=== PATIENT | male | born 1950 | race African-American/Black ===

== ENCOUNTER 2018-12-19 16:57 | Emergency (ER) | payer MEDICARE ==
[~2018-12-19] VITALS: Ht 172.7 cm; Wt 77.3 kg
[2018-12-19 16:59] VITALS: TEMP 98.5
[2018-12-19 18:31] LABS: BASO % 0.3 % (0.0-2.0); EOS # 0.1 (0.0-0.7); GRAN % 77.7 % (42.2-75.2); HEMATOCRIT 39.5 % (42.0-52.0); HEMOGLOBIN 13.1 g/dl (13.5-18.0); LYMPH % 13.4 % (20.0-51.0); MEAN CELL VOLUME 87 fl (80.0-100.0); MEAN CORPUSCULAR HEMOGLOBIN 29 pg (27.0-31.0); MEAN CORPUSCULAR HGB CONC 33 g/dl (33.0-37.0); MEAN PLATELET VOLUME 11.4 fl (7.4-10.4); MONO # 0.6 (0.1-0.6); MONO % 7.2 % (1.7-9.3); PLATELET COUNT 165 K/mm3 (130-400); RED BLOOD COUNT 4.53 M/mm3 (4.20-5.60); REDCELL DISTRIBUTION WIDTH-CV 13.6 % (11.5-14.5)
[2018-12-19 18:47] LABS: ALANINE AMINOTRANSFERASE 41 U/L (21-72); ALBUMIN 3.7 gm/dL (3.5-5.0); ALKALINE PHOSPHATASE 121 U/L (50-136); ANION GAP 7 mmol/L (7-16); AST,SGOT 44 U/L (15-37); BILIRUBIN,TOTAL 0.8 mg/dL (0.0-1.0); BLOOD UREA NITROGEN 10 mg/dL (9-20); CALCIUM 9.1 mg/dL (8.4-10.2); CARBON DIOXIDE 28 mmol/L (22-30); CHLORIDE 104 mmol/L (98-107); CREATININE, serum 0.75 (0.66-1.25); GLUCOSE 126 mg/dL (74-106); LIPASE 140 U/L (23-300); POTASSIUM 4.3 mmol/L (3.4-5.0); SODIUM 139 mmol/L (137-145); TOTAL PROTEIN 7.6 gm/dL (6.4-8.2)
[2018-12-19 18:49] LABS: C-REACTIVE PROTEIN < 0.5 mg/dL (0.0-0.9)
[2018-12-19 18:50] LABS: COLLECTION METHOD CLEAN CATCH
[2018-12-19 18:56] LABS: MUCOUS Present /lpf; PH 7 (5-8); SQUAMOUS EPITHELIAL None Seen /hpf; URINE APPEARANCE Clear; URINE BACTERIA None Seen /hpf; URINE BILIRUBIN Negative (NEGATIVE); URINE BLOOD Negative (NEGATIVE); URINE COLOR Yellow; URINE GLUCOSE Negative (NEGATIVE); URINE KETONE Negative (NEGATIVE); URINE LEUKOCYTE ESTERASE Negative (NEGATIVE); URINE NITRATE Negative (NEGATIVE); URINE PROTEIN(semi-quant) Negative (NEGATIVE); URINE RBC 0-2 /hpf
[2018-12-19 19:49] VITALS: BP 170/108; PULSE 77
== END 2018-12-19 19:57 | disposition home or self-care (01) ==
LOC: COL.ER 16:57
PROVIDERS: Emergency Medicine
DX: K40.90 Unilateral inguinal hernia, without obstruction or gangrene, not specified as recurrent (principal)

== ENCOUNTER → 2019-09-26 | Outpatient (CLI) | payer MEDICARE | LOC: COL.RAD 07:52 | DX: B19.20 Unspecified viral hepatitis C without hepatic coma (principal) ==

== ENCOUNTER 2020-08-12 13:52 | Emergency (ER) | payer MEDICARE ==
[~2020-08-12] VITALS: Ht 175.3 cm; Wt 96.4 kg
[2020-08-12 14:20] LABS: BASO % 0.6 % (0.0-2.0); EOS # 0.3 (0.0-0.7); EOS % 5.5 % (0-4.0); GRAN # 2.5 (1.4-6.5); GRAN % 49.5 % (42.2-75.2); HEMATOCRIT 38.7 % (42.0-52.0); HEMOGLOBIN 12.9 g/dl (13.5-18.0); LYMPH # 1.7 (1.2-3.4); LYMPH % 34.9 % (20.0-51.0); MEAN CELL VOLUME 85 fl (80.0-100.0); MEAN CORPUSCULAR HEMOGLOBIN 28 pg (27.0-31.0); MEAN CORPUSCULAR HGB CONC 33 g/dl (33.0-37.0); MEAN PLATELET VOLUME 11.8 fl (7.4-10.4); MONO # 0.5 (0.1-0.6); MONO % 9.3 % (1.7-9.3); PLATELET COUNT 115 K/mm3 (130-400); RED BLOOD COUNT 4.57 M/mm3 (4.20-5.60); REDCELL DISTRIBUTION WIDTH-CV 13.2 % (11.5-14.5)
[2020-08-12 14:29] LABS: ALANINE AMINOTRANSFERASE 46 U/L (4-49); ALBUMIN 3.5 gm/dL (3.5-5.0); ALKALINE PHOSPHATASE 107 U/L (50-136); ANION GAP 2 mmol/L (7-16); AST,SGOT 57 U/L (15-37); BILIRUBIN,TOTAL 0.9 mg/dL (0.0-1.0); BLOOD UREA NITROGEN 12 mg/dL (9-20); CALCIUM 9.2 mg/dL (8.4-10.2); CARBON DIOXIDE 25 mmol/L (22-30); CHLORIDE 110 mmol/L (98-107); CREATININE, serum 0.71 (0.66-1.25); GLUCOSE 124 mg/dL (74-106); SODIUM 138 mmol/L (137-145); TOTAL PROTEIN 7.6 gm/dL (6.4-8.2)
[2020-08-12 14:43] LABS: TROPONIN-I < 0.012 ng/mL (0.000-0.035)
[2020-08-12] MEDS ORDERED: NORVASC 5MG5 MG/TAB PO (15:10)
[2020-08-12 15:12] VITALS: TEMP 97
[2020-08-12 15:16] VITALS: BP 164/97; PULSE 60
== END 2020-08-12 15:21 | disposition home or self-care (01) ==
LOC: COL.ER 13:52
PROVIDERS: Emergency Medicine
DX: R07.9 Chest pain, unspecified (principal); I10 Essential (primary) hypertension

== ENCOUNTER → 2020-08-15 | Outpatient (CLI) | payer MEDICARE ==
[~2020-08-15] MED LIST: COZAAR 50MG50 MG/TAB PO; HCTZ 25MG TAB25 MG PO; NORCO 325 MG-51 TAB PO; NORVASC 5MG5 MG/TAB PO
== END ==
LOC: COL.RAD 08:34
DX: B19.20 Unspecified viral hepatitis C without hepatic coma (principal)

== ENCOUNTER → 2020-08-30 | Outpatient (CLI) | payer MEDICARE | LOC: COL.VAS 13:27 | DX: I35.0 Nonrheumatic aortic (valve) stenosis (principal); I51.7 Cardiomegaly; R01.1 Cardiac murmur, unspecified ==

== ENCOUNTER 2020-10-30 07:43 | Day surgery (SDC) | payer MEDICARE ==
[2020-10-30] VITALS (7 sets, daily range): BP systolic 115–126; BP diastolic 67–78; PULSE 63–78; TEMP 97.9–98.3
[~2020-10-30] VITALS: Ht 177.8 cm; Wt 99.4 kg
[~2020-10-30 07:43] MED LIST changes: -COZAAR 50MG50 MG/TAB PO; -HCTZ 25MG TAB25 MG PO; -NORCO 325 MG-51 TAB PO
[2020-10-30 09:04] LABS: TRICYCLIC ANTIDEPRESS URINE NEGATIVE
[2020-10-30] MEDS ORDERED: COZAAR 50MG50 MG/TAB PO (09:25)
[2020-10-30] MEDS ORDERED: HCTZ 25MG TAB25 MG PO (09:26)
[2020-10-30] MEDS ORDERED: NORCO 325 MG-51 TAB PO (11:34)
--- NOTE | 2020-10-30 12:10 | NUR ---
returned dfrom PACU to bay #6 per cart, awake and alert, is slow to answer questions, states he is a little dizzy, will monitor, IV infusing into right antecubital, 3 abdominal port sites with bandaids CD&I, scrotal support in place
--- NOTE | 2020-10-30 12:25 | NUR ---
continues to c/o feeling a little dizzy, provided water and will try sipping water, denies further nausea
--- NOTE | 2020-10-30 12:40 | NUR ---
garrett nair per his rerquest,
--- NOTE | 2020-10-30 12:59 | NUR ---
had muffin and tolerated well, denies needs
--- NOTE | 2020-10-30 13:25 | NUR ---
assisted up to bathroom to try and void
--- NOTE | 2020-10-30 14:04 | NUR ---
discharge instructions given to patient and his daughter, verbalizes understanding
--- NOTE | 2020-10-30 14:06 | NUR ---
discharged per WC
== END 2020-10-30 14:08 | disposition home or self-care (01) ==
LOC: SDCO 07:43
PROVIDERS: Surgery
DX: K40.90 Unilateral inguinal hernia, without obstruction or gangrene, not specified as recurrent (principal); I10 Essential (primary) hypertension; B18.2 Chronic viral hepatitis C; E11.9 Type 2 diabetes mellitus without complications; J45.909 Unspecified asthma, uncomplicated; M19.90 Unspecified osteoarthritis, unspecified site; Z79.4 Long term (current) use of insulin; Z79.899 Other long term (current) drug therapy; Z83.3 Family history of diabetes mellitus
CPT/HCPCS: C1781; J0690; J1100; J1885; J2405; J2550; J2704; J3010; J7120